=== PATIENT | female | born 1985 | race Asian ===

== ENCOUNTER 2024-09-21 13:25 | Outpatient (CLI) | payer BC ==
[~2024-09-21] VITALS: Ht 172.7 cm; Wt 87.3 kg
--- NOTE | 2024-09-21 13:40 | NUR ---
SEE PHYSICIAN NOTIFICATION TO .
[2024-09-21 14:00] VITALS: BP 130/82; PULSE 113; TEMP 99.5
[2024-09-21] MEDS ORDERED: LR 1,000 ML IV PRN (14:00)
[2024-09-21] MEDS ORDERED: PRENATAL TABLET PO (14:11)
[2024-09-21 14:14] LABS: BASO % 0.1 % (0.0-2.0); EOS % 0.1 % (0.0-4.0); GRAN # 6.9 K/mm3 (1.4-6.5); GRAN % 72.5 % (42.2-75.2); HEMOGLOBIN 11.7 g/dl (12.5-16.0); LYMPH # 1.8 K/mm3 (1.2-3.4); LYMPH % 18.8 % (20.0-51.0); MEAN CELL VOLUME 84 fl (80.0-100.0); MEAN CORPUSCULAR HEMOGLOBIN 28 pg (27-31); MEAN CORPUSCULAR HGB CONC 34 g/dl (33.0-37.0); MEAN PLATELET VOLUME 10.6 fl (7.4-10.4); MONO # 0.7 K/mm3 (0.1-0.6); MONO % 7.5 % (1.7-9.3); PLATELET COUNT 280 K/mm3 (130-400); RED BLOOD COUNT 4.15 M/mm3 (4.10-5.30); REDCELL DISTRIBUTION WIDTH-CV 13.4 % (11.5-14.5)
[2024-09-21 14:16] LABS: HEMATOCRIT 34.7 % (37.0-47.0)
[2024-09-21 14:30] VITALS: BP 112/75; PULSE 90
[2024-09-21 14:32] LABS: ALBUMIN 3.1 g/dL (3.5-5.0); BILIRUBIN,TOTAL 0.4 mg/dL (0.2-1.2); CALCIUM 9.5 mg/dL (8.4-10.2); CREATININE, serum 0.71 mg/dL (0.57-1.11); POTASSIUM 3.7 mEq/L (3.5-4.5)
[2024-09-21 15:00] VITALS: BP 112/61; PULSE 96
[2024-09-21 15:15] VITALS: BP 110/68; PULSE 99
--- NOTE | 2024-09-21 15:20 | NUR ---
DISCUSSED DC INSTRUCTIONS WITH PT. TOLD PT IF BLEEDING INCREASES OR CONTINUES TO CALL PROVIDER AND RETURN TO HOSPITAL IF NEEDED. PT UNDERSTANDS.
== END 2024-09-21 15:20 | disposition home or self-care (01) ==
LOC: LDRO 13:25
PROVIDERS: Obstetrics & Gynecology
DX: O46.93 Antepartum hemorrhage, unspecified, third trimester (principal); Z3A.36 36 weeks gestation of pregnancy